=== PATIENT | male | born 1995 | race African-American/Black ===

== ENCOUNTER 2016-11-11 23:46 | Emergency (ER) | payer OTHER ==
[~2016-11-11] VITALS: Ht 182.9 cm; Wt 78.0 kg
[2016-11-11 23:51] VITALS: TEMP 36.6; Ht 182.9 cm; Wt 78.0 kg
--- NOTE | 2016-11-11 23:52 | EMERGENCY ROOM VISIT NOTE ---
History Report prepared by Naga: Cheyanne Hamilton Under the Supervision of: Dr. Dorothy Rowell D.O. First contact with patient: 23:46 Chief Complaint: ALCOHOL OVERDOSE Stated Complaint: ALCOHOL History of Present Illness The patient is a 21 year old male who presents to the Emergency Room with complaints of an alcohol overdose happening shortly prior to arrival. Per EMS, the patient was vomiting outside of [facility] and has no signs of trauma. Pt was sitting on a bench per bystanders to EMS. The patient reports that he was drinking liquor and he denies drug use. Source of History: patient Onset: shortly prior to arrival Position: other (global) Quality: other (alochol overdose ) Timing: constant Associated Symptoms: + vomiting Review of Systems See HPI for pertinent positives & negatives. A total of 10 systems reviewed and were otherwise negative. Past Medical & Surgical Unable to obtain medical history sheet secondary to intoxication. Family History Unable to obtain medical history sheet secondary to intoxication. Social History Unable to obtain medical history sheet secondary to intoxication. Current/Historical Medications Unable to Obtain Active Prescriptions or Reported Meds Physical Exam Vital Signs Date Time Temp Pulse Resp B/P (MAP) Pulse Ox O2 Delivery O2 Flow Rate FiO2 11/12/16 14:44 85 17 130/99 99 11/12/16 12:49 78 17 123/56 95 Room Air 11/12/16 11:38 79 17 134/53 11/12/16 11:00 84 19 139/83 11/12/16 10:00 70 16 133/79 97 Room Air 11/12/16 08:58 76 17 100/77 97 Room Air 11/12/16 08:23 67 17 139/89 99 Room Air 11/12/16 06:17 58 16 120/75 97 Room Air 11/12/16 05:43 59 16 111/62 100 Room Air 11/12/16 04:19 55 16 128/83 100 Room Air 11/12/16 03:54 78 11/12/16 02:00 87 16 106/86 93 Room Air 11/12/16 00:00 94 11/11/16 23:55 94 Room Air 11/11/16 23:51 36.6 70 16 90/57 94 Room Air Physical Exam GENERAL: alert, well appearing, well nourished, no distress, smells of ETOH, able to answer questions, no signs of trauma EYE EXAM: normal conjunctiva, PERRL and EOM's grossly intact OROPHARYNX: no exudate, no erythema, lips, buccal mucosa, and tongue normal and mucous membranes are moist NECK: supple, no nuchal rigidity, no adenopathy, non-tender LUNGS: Clear to auscultation. Normal chest wall mechanics HEART: no murmurs, S1 normal and S2 normal ABDOMEN: abdomen soft, non-tender, normo-active bowel sounds, no masses, no rebound or guarding. BACK: Back is symmetrical on inspection and there is no deformity, no midline tenderness, no CVA tenderness. SKIN: no rashes and no bruising UPPER EXTREMITIES: upper extremities are grossly normal. LOWER EXTREMITIES: No pitting edema. NEURO EXAM: Normal sensorium, cranial nerves II-XII intact, normal speech, no weakness of arms, no weakness of legs. Medical Decision & Procedures Laboratory Results 11/12/16 12:45 Red Blood Count 5.44, Mean Corpuscular Volume 83.5, Mean Corpuscular Hemoglobin 27.8, Mean Corpuscular Hemoglobin Concent 33.3, Mean Platelet Volume 9.5, Neutrophils (%) (Auto) 91.8, Lymphocytes (%) (Auto) 5.6, Monocytes (%) (Auto) 2.0, Eosinophils (%) (Auto) 0.0, Basophils (%) (Auto) 0.1, Neutrophils # (Auto) 14.01, Lymphocytes # (Auto) 0.86, Monocytes # (Auto) 0.30, Eosinophils # (Auto) 0.00, Basophils # (Auto) 0.01 11/12/16 12:45 Test 11/12/16 00:09 11/12/16 10:13 11/12/16 12:45 Ethyl Alcohol mg/dL 235.0 mg/dl (0-3) Total Bilirubin 1.2 mg/dl (0.2-1) Direct Bilirubin 0.3 mg/dl (0-0.2) Aspartate Amino Transf (AST/SGOT) 20 U/L (15-37) Alanine Aminotransferase (ALT/SGPT) 20 U/L (12-78) Alkaline Phosphatase 57 U/L (45-117) Total Protein 8.6 gm/dl (6.4-8.2) Albumin 4.9 gm/dl (3.4-5.0) Lipase 73 U/L (73-393) White Blood Count 15.26 K/uL (4.8-10.8) Red Blood Count 5.44 M/uL (4.7-6.1) Hemoglobin 15.1 g/dL (14.0-18.0) Hematocrit 45.4 % (42-52) Mean Corpuscular Volume 83.5 fL (80-100) Mean Corpuscular Hemoglobin 27.8 pg (25-34) Mean Corpuscular Hemoglobin Concent 33.3 g/dl (32-36) Platelet Count 204 K/uL (130-400) Mean Platelet Volume 9.5 fL (7.4-10.4) Neutrophils (%) (Auto) 91.8 % Lymphocytes (%) (Auto) 5.6 % Monocytes (%) (Auto) 2.0 % Eosinophils (%) (Auto) 0.0 % Basophils (%) (Auto) 0.1 % Neutrophils # (Auto) 14.01 K/uL (1.4-6.5) Lymphocytes # (Auto) 0.86 K/uL (1.2-3.4) Monocytes # (Auto) 0.30 K/uL (0.11-0.59) Eosinophils # (Auto) 0.00 K/uL (0-0.5) Basophils # (Auto) 0.01 K/uL (0-0.2) RDW Standard Deviation 39.6 fL (36.4-46.3) RDW Coefficient of Variation 13.2 % (11.5-14.5) Immature Granulocyte % (Auto) 0.5 % Immature Granulocyte # (Auto) 0.08 K/uL (0.00-0.02) Anion Gap 9.0 mmol/L (3-11) Est Creatinine Clear Calc Drug Dose 132.2 ml/min Estimated GFR () 128.8 Estimated GFR (Non- 111.1 BUN/Creatinine Ratio 6.9 (10-20) Calcium Level 9.0 mg/dl (8.5-10.1) Laboratory results per my review. Medications Administered Medications (Trade) Dose Ordered Sig/Sara Route Start Time Stop Time Status Last Admin Dose Admin Ondansetron HCl (Zofran Odt) 4 mg ONE ONCE PO 11/12/16 00:00 11/12/16 00:01 DC 11/11/16 23:57 4 MG Ondansetron HCl (Zofran Odt) 4 mg ONE ONCE PO 11/12/16 02:30 11/12/16 02:31 DC 11/12/16 02:31 4 MG Ondansetron HCl (Zofran Odt) 4 mg ONE ONCE PO 11/12/16 08:00 11/12/16 08:01 DC 11/12/16 07:52 4 MG Sodium Chloride 1,000 ml @ 999 mls/hr Q1H1M STAT IV 11/12/16 10:08 11/12/16 11:08 DC 11/12/16 10:25 999 MLS/HR Ondansetron HCl (Zofran Inj) 4 mg NOW STAT IV 11/12/16 10:08 11/12/16 10:14 DC 11/12/16 10:32 4 MG Sodium Chloride 1,000 ml @ 999 mls/hr Q1H1M STAT IV 11/12/16 10:08 11/12/16 11:08 DC 11/12/16 10:33 999 MLS/HR Famotidine (Pepcid 20mg/100 ml) 20 mg ONE STAT IV 11/12/16 10:08 11/12/16 10:14 DC 11/12/16 10:33 20 MG Dextrose/Sodium Chloride 1,000 ml @ 1,000 mls/hr Q1H STAT IV 11/12/16 12:38 11/12/16 13:37 DC 11/12/16 12:48 1,000 MLS/HR ED Course 2350: The patient was evaluated in room B12B. A complete history and physical exam was performed. 0000: Ordered Zofran Odt 4 mg PO. 0150: Sober friends of the patient are here. Patient is able to be aroused but unable to ambulate. They state they were with the patient tonight drinking. They all walked to [facility] to use the bathroom and when they walked back outside he was gone and they didn't know where he went. They deny any altercations or trauma while he was with them. 0412: Pt had recurrent episode of vomiting, zofran ordered. Pt otw with stable VS. No slurred speech. Answering a few yes/no questions. Awaiting sobriety to [place]. Medical Decision Differential diagnosis: Etiologies such as alcohol intoxication, toxicologic, infection, hypoglycemia, electrolyte abnormalities, cardiac sources, intracerebral event, neurologic, as well as others were entertained. No history or PE findings to suggest trauma. Likely n/v due to intoxication. Friends were willing to take home, however pt unable to stand and stay awake. They are willing to return to take him home when more sober. Medication Reconcilliation Current Medication List: was personally reviewed by me Blood Pressure Screening Patient's blood pressure: Normal blood pressure Impression Primary Impression: Alcohol use with intoxication Additional Impression: Vomiting Scribe Attestation The scribe's documentation has been prepared under my direction and personally reviewed by me in its entirety. I confirm that the note above accurately reflects all work, treatment, procedures, and medical decision making performed by me. Departure Information Dispostion Home / Self-Care Prescriptions Unable to Obtain Active Prescriptions or Reported Meds Patient Instructions My [facility] Additional Instructions Please drink responsibly and in a safe location. If you have any recurrent vomiting, develop headaches, vision changes, abdominal pain, trouble breathing, chest pain, fevers, or you have any other new or concerning symptoms, please return to the emergency room. Problem Qualifiers Additional Impression: Vomiting Vomiting type: unspecified Vomiting Intractability: non-intractable Nausea presence: with nausea Qualified Codes: R11.2 - Nausea with vomiting, unspecified
[2016-11-11 23:55] VITALS: O2SAT 94
[2016-11-12 00:38] LABS: BUN/CREATININE RATIO 7.4 (10-20); CALCIUM 9.7 mg/dl (8.5-10.1); CREATININE 1.1 mg/dl (0.60-1.40); POTASSIUM 3.4 mmol/L (3.5-5.1)
[2016-11-12] MEDS ORDERED: ONDANSETRON 4MG OD TAB PO ONE ×3 (02:30→08:00)
[2016-11-12] MEDS ORDERED: LORAZEPAM 2 MG/ML 1 ML VIAL IM STA (05:22)
--- NOTE | 2016-11-12 08:24 | EMERGENCY ROOM VISIT NOTE ---
ED Visit Note 21 yr old intoxicated male brought in by EMS initially evaluated and treated by Dr Rowell. Initial plan to discharge once sober though he started vomiting more as he became more sober. I went and evaluated patient who states he is just nauseous and that he doesn't want anything. Several times throughout night evaluated and usually sleeping though periodically would vomit. I offered several times to have IV placed and give fluids though he refuses. Eventually admitted that he had been smoking marijuana that may have been laced with something. Still refuses IV/Fluids. Patient with no evidence nor history for trauma. Protecting airway and breathing comfortably throughout ED stay. Friends to take home.
[2016-11-12] MEDS ORDERED: FAMOTIDINE 20MG/102 ML D5W IV STA (10:08)
[2016-11-12] MEDS ORDERED: SODIUM CHLORIDE 0.9% 1000ML 1,000 ML IV STA ×4 (10:08→12:31)
[2016-11-12] MEDS ORDERED: ONDANSETRON INJ 2 MG/ML 2 ML VIAL IV STA (10:08)
[2016-11-12 10:26] LABS: BASO % 0.1 %; BASO ABS # 0.01 K/uL (0-0.2); COMPLETE YES; HEMATOCRIT 47.1 % (42-52); IG% 0.4 %; LYMPH % 4.1 %; LYMPH ABS # 0.79 K/uL (1.2-3.4); MEAN CELL VOLUME 81.8 fL (80-100); MEAN CORPUSCULAR HGB CONC 35.5 g/dl (32-36); MEAN PLATELET VOLUME 9.2 fL (7.4-10.4); MONO % 2.7 %; NEUT % 92.7 %; PLATELET COUNT 212 K/uL (130-400); RED BLOOD COUNT 5.76 M/uL (4.7-6.1)
[2016-11-12 10:49] LABS: BUN/CREATININE RATIO 6.6 (10-20); CALCIUM 9.9 mg/dl (8.5-10.1); CREATININE 1.1 mg/dl (0.60-1.40)
[2016-11-12] MEDS ORDERED: D5W AND NSS 1,000 ML IV STA (12:38)
[2016-11-12 13:06] LABS: BASO % 0.1 %; BASO ABS # 0.01 K/uL (0-0.2); COMPLETE YES; HEMATOCRIT 45.4 % (42-52); IG% 0.5 %; LYMPH % 5.6 %; LYMPH ABS # 0.86 K/uL (1.2-3.4); MEAN CELL VOLUME 83.5 fL (80-100); MEAN CORPUSCULAR HEMOGLOBIN 27.8 pg (25-34); MEAN CORPUSCULAR HGB CONC 33.3 g/dl (32-36); MEAN PLATELET VOLUME 9.5 fL (7.4-10.4); NEUT % 91.8 %; PLATELET COUNT 204 K/uL (130-400); RED BLOOD COUNT 5.44 M/uL (4.7-6.1); WHITE BLOOD COUNT 15.26 K/uL (4.8-10.8)
[2016-11-12 13:17] LABS: BUN/CREATININE RATIO 6.9 (10-20); CREATININE 0.97 mg/dl (0.60-1.40); POTASSIUM 4.3 mmol/L (3.5-5.1)
--- NOTE | 2016-11-12 14:28 | EMERGENCY ROOM VISIT NOTE ---
ED Visit Note First contact with patient: 10:08 s/o from Dr. Yanez in AM. Patient presents to ED with etoh intoxication. Endorsed question of also having used adulterated marijuana. Having persistent n /v in AM but refusing IV initially. Upon re-evaluation patient agreeable to IV. Labs repeated considering persistent vomiting. WBC elevated to 19. Agap 12. Mostly likely related to dehydration/etoh gastritis and possible component of etoh ketoacidosis. Given additional IVF including D5NS. Repeat labs to WBC to 15 and Agap cleared to 9. Patient much improved. Friend to garbage pick up man. Patient to f /u with student clinic.
[2016-11-12 14:44] VITALS: BP 130/99; PULSE 85; O2SAT 99
== END 2016-11-12 14:45 | disposition home or self-care (01) ==
LOC: EDBD 23:46 → C.EDB 23:48
DX: F10.129 Alcohol abuse with intoxication, unspecified (principal); R11.2 Nausea with vomiting, unspecified